=== PATIENT | male | born 1940 | race Caucasian/White ===

== ENCOUNTER 2017-05-21 15:49 | Emergency (ER) | payer MEDICARE, OTHER ==
[2017-05-21 16:14] LABS: BASOPHILS 0.2 % (0.0-2.0); HEMATOCRIT 44.8 % (42.0-54.0); HEMOGLOBIN 15.4 g/dL (14.0-18.0); LYMPHOCYTES 8.5 % (20.0-40.0); MEAN CELL VOLUME 90.4 fL (80.0-100.0); MEAN CORPUS. HGB CONCENTRATION 34.5 g/dL (32.0-36.0); MEAN CORPUSCULAR HEMOGLOBIN 31.2 pg (29.0-35.0); MEAN PLATELET VOLUME 9.3 fL (7.4-10.4); MONOCYTES 4.1 % (2.0-10.0); MONOCYTES# 0.5 X 10^3uL (0.2-1.0); NEUTROPHILS# 10.2 X 10^3uL (2.6-6.7); PLATELET COUNT 194 X 10^3uL (130-440); RED BLOOD COUNT 4.95 X 10^6uL (4.20-6.10); RED CELL DISTRIBUTION WIDTH 12.8 % (11.5-14.5); WHITE BLOOD COUNT 11.7 X 10^3uL (3.9-10.7)
[2017-05-21 16:19] LABS: BLOOD UREA NITROGEN 15 mg/dL (9-20); CALCIUM 9.6 mg/dL (8.4-10.2); CHLORIDE 93 mmol/L (98-107); EST GLOMERULAR FILTRATION RATE > 60 mL/min; GLUCOSE 167 mg/dL (70-100); POTASSIUM 4.4 mmol/L (3.5-5.1); SODIUM 129 mmol/L (137-145)
--- NOTE | 2017-05-21 16:25 | CT REPORT ---
HISTORY: Altered mental status and weakness. COMPARISON: None. TECHNIQUE: Axial non-contrast images obtained from skull vertex through foramen magnum. Dose reduction technique was utilized. FINDINGS: The ventricles, sulci and cisterns are prominent, suggesting age-related tissue loss. There is right greater than left bilateral inferior frontal and temporal encephalomalacia, suggesting old trauma. Th ere is patchy low attenuation within the periventricular white matter which is nonspecific in appeara nce. There is no intra-axial hemorrhage, mass, midline shift or large vessel acute territorial infarc t. There is no extra axial fluid collection. The globes are intact. The paranasal sinuses appear clear. The mastoids appear well aerated. The bone s and soft tissues appear unremarkable. IMPRESSION: Inferior temporal and frontal encephalomalacia bilaterally, suggesting old trauma. No evidence of acute intracranial hemorrhage or large vessel acute territorial infarct. Scattered low attenuation in the periventricular white matter, likely reflecting sequela of small ves [place] ischemic disease. Critical results were communicated to Dr. Babar Francois at 4:22 PM on 05/21/2017. Final Electronic Signature: This report was electronically signed by Brian Triplett MD on 05/21/20 17 4:23 PM. margoth /
[2017-05-21 16:35] LABS: NEUTROPHILS 87.2 % (54.0-75.0)
[2017-05-21 16:37] LABS: ALBUMIN 4.8 g/dL (3.5-5.0); ALKALINE PHOSPHATASE 76 U/L (38-126); ALT 42 U/L (21-72); AST 25 U/L (17-59); BILIRUBIN, DIRECT 0.4 mg/dL (0.0-0.4); BILIRUBIN, TOTAL 1.2 mg/dL (0.2-1.3); TOTAL PROTEIN 8.4 g/dL (6.3-8.2)
[2017-05-21 16:49] LABS: TROPONIN I < 0.012 ng/mL (0.00-0.034)
[2017-05-21] MEDS ORDERED: DEXAMETHASONE 10 MG/ML VIAL ONE (17:27)
--- NOTE | 2017-05-21 18:15 | ER PHYSICIAN DOCUMENTATION ---
Physician Documentation [facility] [place] Name:Liam Mcclure Age:76 yrs Sex:Male :1940 Arrival Date:05/21/2017 Time:15:49 BedTrauma-A Private MD: Shane Aleman Disposition: 05/21 20:53 Critical Care: not applicable. Chart complete. tl1 Disposition: 05/21/17 17:47 Transfer ordered to [facility]. Diagnosis is Altered Mental Status. - Reason for transfer: Higher level of care. - Accepting physician is DR TAL COLLADO. - Condition is Serious. - Problem is new. - Symptoms are unchanged. COBRA Form completed? Yes Transfer - Mode of Transportation Ambulance HPI: 16:00 This 76 yrs old Male presents to ER with complaints of Altered Mental Status. tl1 16:01 The patient presents with confusion, decreased mental status. Onset: The tl1 symptom(s)/episode began/occurred gradually, today. Possible causes: CVA or TIA, seizure, sepsis, unknown. HE has been with his family, visiting [place] for the last several days. He has a h/o CAD, obesity, HTN, and DM. He was OK this morning when they started driving over [address] and family noticed that he was sleeping in the car as he often does. When they got to [place], he was persistently drowsier than usual and they drove back over [place]. At the top he had a depressed mental status and they came here immediately. The time elapsed from the time that they first noted something wrong has been about 6 hours. He is unable to contribute to his history.. Historical: - Allergies: No known drug Allergies; - Home Meds: 1. Isosorbide Mononitrate Oral 2. Crestor oral 3. Aspirin Oral 4. Metoprolol Tartrate Oral 5. gabapentin oral 6. Onglyza oral 7. Metformin Oral - PMHx: DIABETES - NIDDM; - PSHx: cardiac stent; - Tetanus: unable to assess. - Ebola Screening: : Patient denies exposure to infectious person. Patient denies travel to an Ebola-affected area in the 21 days before illness onset. . - Immunization history: Pneumococcal vaccine status is unknown. - Social history: Smoking status: unknown if patient ever smoked tobacco. ROS: 16:01 Unable to obtain ROS due to patient's speech is incomprehensible, patient's inability tl1 to understand questions. Exam: 16:01 Constitutional: The patient appears alert, comfortable, non-toxic, well developed, well tl1 hydrated, well groomed, well nourished, listless, obese. 16:01 Head/face: Exam is negative for acute changes. 16:01 Eyes: Pupils: equal, right pupil is approximately 2 mm(s), left pupil is approximately 2 mm(s), both non - reactive,, Extraocular movements: Unable or unwilling to look to either side. he has a strange sort of nystagmus when he looks straight ahead., Conjunctiva: injected, Sclera: icterus, is not appreciated. 16:01 ENT: Exam is negative for acute changes. 16:01 Neck: ROM/movement: is normal, is supple, Lymph nodes: no appreciated lymphadenopathy. 16:01 Cardiovascular: Rate: normal, Rhythm: regular, Heart sounds: murmur, diastolic, grade 3 over 6, heard in the aortic area, Edema: 1+ edema to level of left midcalf and right midcalf, JVD: is not appreciated. 16:01 Respiratory: the patient does not display signs of respiratory distress, Respirations: normal, Breath sounds: are normal, no rales, rhonchi, no stridor, no wheezing. 16:01 Abdomen/GI: Inspection: distension, that is moderate, obese, Bowel sounds: diminished, Palpation: abdomen is soft and non-tender. 16:01 Back: CVA tenderness, is absent. 16:01 Skin: Exam negative for acute changes. 16:01 Neuro: Orientation: Not oriented to place, time, situation, Mentation: slow to respond, unable to follow commands, Memory: unable to test, Cranial nerves: Speech is dysarthric, slowed, Gag reflex present. Motor: moves all fours, strength is 5/5 in the right hand, left hand, right foot and left foot, Sensation: unable to test, Gait: not tested. Vital Signs: 15:55 BP 176 / 83; Pulse 64; Resp 23; Pulse Ox 89% ; em3 16:15 BP 205 / 83; Pulse 59; Resp 19; Pulse Ox 91% on R/A; st 16:17 BP 176 / 83; Pulse 67; Pulse Ox 93% ; em3 16:25 Temp 99.3; st 16:30 BP 169 / 79; Pulse 76; Pulse Ox 93% ; st 16:45 BP 191 / 89; Pulse 67; Resp 12; Pulse Ox 94% ; em3 17:08 BP 179 / 81 (auto/); st 17:09 Pulse 64 MON; Resp 23; Pulse Ox 96% ; st MDM: 16:01 ECG:. tl1 16:08 Patient medically screened. tl1 16:54 EKG attached lc 17:00 Differential Diagnosis: CVA, electrolyte abnormality, hypoglycemia, intracranial bleed, tl1 meningitis, sepsis, TIA, UTI, volume depletion. Data reviewed: vital signs, nurses notes, lab test result(s), cardiac enzymes, CBC, electrolytes, hepatic panel, urinalysis, EKG, radiologic studies, and as a result, I will *Transfer Patient. Counseling: I had a detailed discussion with the patient and/or guardian regarding: the historical points, exam findings, and any diagnostic results supporting the discharge/admit diagnosis, the need to transfer to another facility, for higher level of care, [facility] [place] does not immediately have the required specialist. Response to treatment: There is no appreciated change of the patient's symptoms at this time. Physician consultation: Michele Sears was called at 17:05, was contacted at 17:10, regarding admission, To [facility]., patient's condition, and will see patient in inpatient room, after a discussion of the case, a recommendation for transfer for higher level of care is made. Admission orders: after a detailed discussion of the patient's condition and case, the admit orders are written by me. ED course: No change. I considered high altitude cerebral edema and gave him 6 mg of IV decadron.. 05/21 16:30 Order name: BASIC METABOLIC PANEL; Complete Time: 16:54 EDMS 05/21 16:42 Interpretation: SODIUM 129; POTASSIUM 4.4; CHLORIDE 93; CARBON DIOXIDE 21; GLUCOSE 167. tl1 05/21 16:35 Order name: CBC AUTO DIF, MDIF/RMOR IF IND; Complete Time: 16:54 EDMS 05/21 16:43 Interpretation: WHITE BLOOD COUNT 11.7; HEMOGLOBIN 15.4; HEMATOCRIT 44.8; PLATELET tl1 COUNT 194; NEUTROPHILS 87.2. 05/21 16:39 Order name: HEPATIC PANEL; Complete Time: 16:54 EDMS 05/21 16:43 Interpretation: Normal Except: TOTAL PROTEIN 8.4. 1 05/21 16:47 Order name: LACTATE; Complete Time: 16:54 EDMS 05/23 06:06 Interpretation: Normal: LACTATE 2.0. 1 05/21 16:49 Order name: AMMONIA LEVEL; Complete Time: 16:54 EDMS 05/23 06:06 Interpretation: Normal: AMMONIA LEVEL < 9. 1 05/21 16:49 Order name: TROPONIN I; Complete Time: 16:54 EDMS 05/23 06:06 Interpretation: Normal: TROPONIN I < 0.012. 1 05/22 16:31 Order name: BLOOD CULTURE; Complete Time: 06:08 EDMS 05/22 16:31 Order name: BLOOD CULTURE; Complete Time: 06:08 EDMS 05/23 06:06 Interpretation: Normal: BLOOD CULTURE NO GROWTH TO DATE. 1 05/21 16:28 Order name: CAT SCAN; HEAD W/O CON [id number]; Complete Time: 16:45 EDMS 05/23 06:07 Interpretation: NAD. SEE NOTE. 1 05/21 16:01 Order name: EKG - 12 Lead; Complete Time: 16:02 st 05/21 16:16 Order name: Oxygen; Complete Time: 16:17 st 05/21 16:16 Order name: Continuous Cardiac Monitoring; Complete Time: 16:17 st 05/21 16:16 Order name: Pulse Ox Continuous; Complete Time: 16:17 st EC:52 Rate is 59 beats/min. Rhythm is regular, Normal Sinus Rhythm with probable old ASMI. tl1 QRS [place] is Normal. IL interval is normal at 180 msec. QRS interval is normal at 84 msec. QT interval is normal at 388 msec. Q waves are Present in leads III, aVF, V1, V2. T waves are Normal. No ST changes noted. Clinical impression: NSR with old ASMI. Dispensed Medications: 17:15 Drug: Decadron 10 mg IVP - Dexamethasone 6 mg; Route: IVP; Site: right forearm; st Point of Care Testing: Blood Glucose: 15:56 Blood Glucose: 155 mg/dL; st Ranges: Critical Glucose Levels:Adult <50 mg/dl or >400 mg/dl <40 mg/dl or >180 mg/dl Signatures: Walter Russo, RN RN tg Twombly, Summer, RN RN Daily Barnes, RN RN Shane Smith MD MD tl1
--- NOTE | 2017-05-21 18:15 | ER NURSING DOCUMENTATION ---
Nurse's Notes [facility] Name:Liam Mcclure Age:76 yrs Sex:Male :1940 Arrival Date:05/21/2017 Time:15:49 BedTrauma-A Private MD: Diagnosis:Altered Mental Status Presentation: 05/21 15:52 Presenting complaint: Presenting complaint: family states that pt has gotten more and st more tired over the last 6 hours as they came over [facility]. pt is drowsy and has troubles fallowing commands or staying awake. Pt states yes when asked about a headache. 15:55 Acuity: MARYAM 1 st 16:08 Transition of care: patient was not received from another setting of care. st 16:08 Method Of Arrival: Private Vehicle st Triage Assessment: 15:52 General: Appears sleepy. Behavior is drowsy, opens eyes when shouted at but has st troubles fallow ing commands. . General: symptoms have been developing for 6 hours. . Pain: Unable to use pain scale. pt is really not able to talk about pain. EENT:. EENT: Neuro: Oriented to person, Moves all extremities. Pupils are sluggish. Cardiovascular: No deficits noted. Respiratory: No deficits noted. GI: No deficits noted. Historical: - Allergies: No known drug Allergies; - Home Meds: 1. Isosorbide Mononitrate Oral 2. Crestor oral 3. Aspirin Oral 4. Metoprolol Tartrate Oral 5. gabapentin oral 6. Onglyza oral 7. Metformin Oral - PMHx: DIABETES - NIDDM; - PSHx: cardiac stent; - Tetanus: unable to assess. - Ebola Screening: : Patient denies exposure to infectious person. Patient denies travel to an Ebola-affected area in the 21 days before illness onset. . - Immunization history: Pneumococcal vaccine status is unknown. - Social history: Smoking status: unknown if patient ever smoked tobacco. Screenin:15 Infectious Disease Risk Unable to Obtain. Abuse screen: Unable to Obtain. Nutritional st screening: No deficits noted. Assessment: 17:04 Reassessment: pt sleeping quietly. pt remains hard to arouse and does not fallow st commands well. vital signs remain stable. . 17:34 General: pt is a little more alert. pt is confused about where he is. . st Vital Signs: 15:55 BP 176 / 83; Pulse 64; Resp 23; Pulse Ox 89% ; em3 16:15 BP 205 / 83; Pulse 59; Resp 19; Pulse Ox 91% on R/A; st 16:17 BP 176 / 83; Pulse 67; Pulse Ox 93% ; em3 16:25 Temp 99.3; st 16:30 BP 169 / 79; Pulse 76; Pulse Ox 93% ; st 16:45 BP 191 / 89; Pulse 67; Resp 12; Pulse Ox 94% ; em3 17:08 BP 179 / 81 (auto/); st 17:09 Pulse 64 MON; Resp 23; Pulse Ox 96% ; st ED Course: 15:52 Patient arrived in ED. arc 15:52 EKG done. (by ED staff). Reviewed by Shane Francois MD. em3 15:55 Frieda Graham, RN is Primary Nurse. st 15:[address] 16:02 Labs drawn. By firearms sales associate Sent per order to lab. Inserted saline lock: 18 gauge in right em3 forearm and blood collected. 16:04 Valuables Remains with patient Patient has correct armband on for positive em3 identification. Placed in gown. Bed in low position. Call light in reach. Side rails up X2. 16:07 Patient moved to ID. hz 16:08 Shane Francois MD is Attending Physician. tl1 16:13 Patient moved back from ID. hz 16:16 Oxygen Oxygen administration via nasal cannula @ 2L/min. st 16:18 sprinkler fitter on. Pulse ox on. NIBP on. st 16:54 EKG attached lc 17:[address] Administered Medications: 17:15 Drug: Decadron 10 mg IVP - Dexamethasone 6 mg; Route: IVP; Site: right forearm; st Point of Care Testing: Blood Glucose: 15:56 Blood Glucose: 155 mg/dL; st Ranges: Output: 17:33 Urine: 300ml (Voided); Total: 300ml. st Outcome: 17:03 Transferred: Patient will be transferred to: [facility]. Facility st Acceptance Time: May 21, 2017 at 17:04 Patient's face sheet was faxed to accepting facility. Face Sheet included patient's name, address, age, gender, contact information and insurance information. Patient will be transported by: [facility] ground. 17:23 Transferred: Report called to: attempted to call report. They dod not have a RN yet they will call me back when they do. Nurse and Physician Charting and Notes were sent to Accepting Facility. All tests and/or procedures with results, if applicable, were sent to accepting facility. 17:23 Condition: guarded. 17:23 Instructed on need for transfer 17:47 ER care complete, transfer ordered by . tl1 18:14 Patient left the ED. 18:45 [facility] Signatures: Walter Russo, RN RN Frieda Graham, RN RN Daily Kern RN RN Javed Carl Tom, MD MD tl1 Merissa Pinto, [facility] Paige Uribe
== END 2017-05-21 18:15 | disposition short-term general hospital (02) ==
LOC: ER 15:49
DX: R41.82 Altered mental status, unspecified (principal); H55.00 Unspecified nystagmus; R60.0 Localized edema; R47.1 Dysarthria and anarthria; R14.0 Abdominal distension (gaseous); I25.10 Atherosclerotic heart disease of native coronary artery without angina pectoris; I10 Essential (primary) hypertension; E11.9 Type 2 diabetes mellitus without complications; Z79.899 Other long term (current) drug therapy; Z79.82 Long term (current) use of aspirin; Z99.81 Dependence on supplemental oxygen; Z74.3 Need for continuous supervision
CPT/HCPCS: 36415; 70450; 80048; 80076; 82140; 83605; 84484; 85025; 87040; 93005; 96374; 99285; A0425; A0427; J1100